=== PATIENT | female | born 1935 | race Caucasian/White ===

== ENCOUNTER 2018-09-08 15:51 | Outpatient (CLI) | payer MEDICARE ==
--- NOTE | 2018-09-08 18:52 | RAD ---
EXAM: CHEST TWO VIEWS: 09/08/18 HISTORY: COPD. Bilateral hyperinflation and chronic lung changes. Marked atherosclerotic ectatic changes of the aor ta. Heart size is borderline enlarged. Blunting to both costophrenic angles, possibly small pleural e ffusions. No confluent pneumonia, overt edema, or pleural effusion. Evidence for bone demineralizatio n. IMPRESSION: Minimal cardiomegaly with blunting of both costophrenic angles. Hyperinflation and chronic lung puente es. Marked atherosclerotic ectatic changes of the aorta. POS: [facility]
== END 2018-09-08 15:52 | disposition home or self-care (01) ==
LOC: RAD-FRANK 15:51
PROVIDERS: ATTEND Nurse Practitioner Family
DX: J44.9 Chronic obstructive pulmonary disease, unspecified (principal); I51.7 Cardiomegaly; I70.0 Atherosclerosis of aorta; J98.4 Other disorders of lung
CPT/HCPCS: 71046

== ENCOUNTER 2018-12-23 15:21 | Outpatient (CLI) | payer MEDICARE ==
--- NOTE | 2018-12-23 15:33 | RAD ---
EXAM: Chest 2 views: HISTORY: Bronchitis COMPARISON: 09/08/2018 FINDINGS: There is a normal-sized cardiomediastinal silhouette. There is no evidence of consolidation, mass, or pleural effusion. Degenerative changes are seen in the spine. IMPRESSION: No evidence of acute cardiopulmonary disease
== END 2018-12-23 15:22 | disposition home or self-care (01) ==
LOC: RAD-FRANK 15:21
PROVIDERS: ATTEND Nurse Practitioner Family
DX: J40 Bronchitis, not specified as acute or chronic (principal)
CPT/HCPCS: 71046

== ENCOUNTER 2019-05-11 14:44 | Outpatient (CLI) | payer MEDICARE ==
--- NOTE | 2019-05-11 15:42 | RAD ---
CHEST TWO VIEW 05/11/19 HISTORY: Cough. COMPARISON: Radiograph 12/23/18. FINDINGS: There is a chronic density in the right costophrenic sulcus. The aortic contour is tortuous. No conf luent air space consolidation, pneumothorax or effusion. No acute osseous abnormality. Increased AP d imension of the chest. IMPRESSION: Chronic findings. No acute intrathoracic abnormality. POS: [facility]
== END 2019-05-11 14:45 | disposition home or self-care (01) ==
LOC: RAD-FRANK 14:44
PROVIDERS: ATTEND Nurse Practitioner Family
DX: R05 Cough (principal)
CPT/HCPCS: 71046

== ENCOUNTER 2019-08-02 13:45 | Outpatient (CLI) | payer MEDICARE ==
--- NOTE | 2019-08-02 14:45 | BD ---
DEXA BONE DENSITY STUDY: Date: 08/02/19 HISTORY: Postmenopausal. FINDINGS: Lumbar Spine: BMD (g/cm2) L1 0.931 T-Score: -0.5 L2 0.928 T-Score: -0.9 L3 0.870 T-Score: -1.9 L4 0.992 T-Score: -0.6 Total 0.931 T-Score: -1.1 Left Femoral Neck: 0.555 T-Score: -2.6 Total Femur: 0.684 T-Score: -2.1 IMPRESSION: Osteopenia of the lumbar spine and osteoporosis of the left femoral neck. POS: [facility]
== END 2019-08-02 13:46 | disposition home or self-care (01) ==
LOC: BICMAMMO 13:45
PROVIDERS: ATTEND Nurse Practitioner Family
DX: Z13.820 Encounter for screening for osteoporosis (principal); M81.0 Age-related osteoporosis without current pathological fracture; M85.88 Other specified disorders of bone density and structure, other site
CPT/HCPCS: 77080

== ENCOUNTER 2020-10-20 11:18 | Inpatient (IN) | payer MEDICARE ==
[2020-10-20 12:14] LABS: #Lymphocytes 0.5 thou/uL (1.20-3.40); #Monocytes 0.4 thou/uL (0.11-0.59); #Neutrophils 11.1 thou/uL (1.40-6.50); %Basophils 0.1 % (0.0-1.0); %Eosinophils 0.1 % (0.0-10.0); %Lymphocytes 4.2 % (21.0-51.0); %Monocytes 3.6 % (0.0-10.0); Hemoglobin 16.6 g/dL (12.0-16.0); Mean Corpuscular HGB CONC 36.2 g/dL (32.0-36.0); Mean Platelet Volume 6.4 fL (7.4-10.4); Platelet Count 291 thou/uL (130-400); RBC Distribution Width 11.3 % (11.5-14.5); Red Blood Cell (RBC) Count 4.37 mill/uL (4.20-5.40); White Blood Cell (WBC) Count 12.1 thou/uL (4.8-10.8)
[2020-10-20 12:20] LABS: INR-International Normal Ratio 0.9; Prothrombin Time 12.5 sec (12.0-14.7)
[2020-10-20 12:33] LABS: Bacteria/HPF 3+ HPF (None Seen); Bilirubin Negative (Negative); Blood, Urine 2+ (Negative); Clarity Turbid (Clear); Glucose, Urine (Dipstick) Normal (Negative); Ketone, Urine Trace mg/dL (Negative); Leukocyte 250 Leu/uL (Negative); Nitrite Negative (Negative); Protein, Urine (Dipstick) 50 mg/dL (Neg-Trace); RBC/HPF 0-3 HPF (0-3); Specific Gravity, Urine 1.016 (1.002-1.036); Squamous Epithelial 0-3 HPF (0-3); Urobilinogen Normal mg/dL (Less than 2); WBC/HPF 21-50 HPF (0-3); pH, Urine 6.5 (5.0-9.0)
[2020-10-20 12:36] LABS: ALT (SGPT) 27 U/L (8-55); AST (SGOT) 43 U/L (5-34); Albumin 4.2 g/dL (3.4-4.8); Alkaline Phosphatase 102 U/L (40-110); Anion Gap 20 mmol/L (10-20); BUN (Urea Nitrogen) 14 mg/dL (9.8-20.1); Bilirubin, Total 1.9 mg/dL (0.2-1.2); CK (CPK) 907 U/L (29-168); Calc. Creatinine Clearance 0 mL/min (70-130); Calcium 9.5 mg/dL (7.8-10.44); Carbon Dioxide 26 mmol/L (23-31); Chloride 81 mmol/L (98-107); Globulin 2.8 g/dL (2.4-3.5); Glucose 123 mg/dL (83-110); Magnesium 1.3 mg/dL (1.6-2.6); Sodium 124 mmol/L (136-145)
[2020-10-20 12:38] LABS: MDiff Complete? YES; Macrocytosis SLIGHT = 6-15 cells (100X) (0-5/hpf); Platelet Morphology Comment Appears Adequate
[2020-10-20] MEDS ORDERED: Fentanyl 100 MCG/2 ML VIAL ONE ×2 (12:38→13:13)
[2020-10-20 12:47] LABS: Potassium 2.8 mmol/L (3.5-5.1)
[2020-10-20 13:12] LABS: CKMB 9.4 ng/mL (0-6.6)
[2020-10-20] MEDS ORDERED: Potassium Chloride 20 MEQ TAB ONE (13:55)
[2020-10-20] MEDS ORDERED: Potassium Chloride 20 MEQ/100 ML PREMIX BAG ONE (13:55)
[2020-10-20] MEDS ORDERED: Magnesium 2 GM/50 ML BAG (IN WATER) ONE (13:55)
[2020-10-20] MEDS ORDERED: cefTRIAXone\\ROCEPHIN 2 GM VIAL ONE (13:55)
[2020-10-20] MEDS ORDERED: Dextrose 5% in Water 1,000 ML IV PRN (14:16)
[2020-10-20] MEDS ORDERED: Ondansetron PF 4 MG/2 ML Vial IVP PRN (14:16)
[2020-10-20] MEDS ORDERED: hydrALAZINE 20 MG/ML VIAL SLOW IVP PRN (14:16)
[2020-10-20] MEDS ORDERED: Dextrose 50% Abboject 50 ML SYRINGE SLOW IVP PRN (14:16)
[2020-10-20] MEDS ORDERED: Ondansetron ODT 4 MG TAB PO PRN (14:16)
[2020-10-20] MEDS ORDERED: Cyclobenzaprine 10 MG TAB PO PRN (14:25)
[2020-10-20] MEDS ORDERED: traMADol HCl 50 MG TAB PO PRN (14:25)
[2020-10-20 14:50] LABS: Phosphorus 2.1 mg/dL (2.3-4.7)
[2020-10-20] MEDS ORDERED: Morphine 4 MG/ML VIAL ONE (15:21)
[2020-10-20] MEDS ORDERED: Sodium Phosphate 30 MMOL in Sodium Chloride 0.9% 250 ML 250 ML IVPB SCH (15:45)
[2020-10-20] MEDS: Morphine 2 MG/ML VIAL SLOW IVP PRN (18:05)
[2020-10-20] MEDS: Acetaminophen 500 MG TAB PO SCH ×2 (18:06→23:38)
[2020-10-20] MEDS: Sodium Chloride 0.9% 1,000 ML IV SCH ×2 (18:07→23:38)
[2020-10-20 18:50] LABS: Anion Gap 17 mmol/L (10-20); BUN (Urea Nitrogen) 12 mg/dL (9.8-20.1); Calc. Creatinine Clearance 69 mL/min (70-130); Calcium 8.8 mg/dL (7.8-10.44); Carbon Dioxide 24 mmol/L (23-31); Chloride 85 mmol/L (98-107); Glucose 117 mg/dL (83-110); Magnesium 2.6 mg/dL (1.6-2.6); Phosphorus 2.3 mg/dL (2.3-4.7); Potassium 3.6 mmol/L (3.5-5.1); Sodium 122 mmol/L (136-145)
[2020-10-20 18:59] LABS: Critical Call Chem Troponin I RESULT DECREASING
[2020-10-20 19:17] LABS: CKMB 6.5 ng/mL (0-6.6)
[2020-10-20] MEDS: Famotidine 20 MG TAB PO SCH (21:23)
[2020-10-21] MEDS: Morphine 2 MG/ML VIAL SLOW IVP PRN ×4 (01:07→19:41)
[2020-10-21 01:50] LABS: SARS-CoV-2 PCR by NAA Not Detected (NotDetected)
[2020-10-21 04:32] LABS: #Eosinphils 0.1 thou/uL (0.0-0.7); #Lymphocytes 1.1 thou/uL (1.20-3.40); #Monocytes 0.6 thou/uL (0.11-0.59); #Neutrophils 6.6 thou/uL (1.40-6.50); %Basophils 0.3 % (0.0-1.0); %Eosinophils 0.7 % (0.0-10.0); %Lymphocytes 13.5 % (21.0-51.0); %Monocytes 6.8 % (0.0-10.0); %Neutrophils 78.7 % (42.0-75.0); Hemoglobin 13.4 g/dL (12.0-16.0); Mean Corpuscular HGB CONC 35.7 g/dL (32.0-36.0); Mean Corpuscular Hemoglobin 37.9 pg (27.0-31.0); Mean Platelet Volume 6.6 fL (7.4-10.4); Platelet Count 214 thou/uL (130-400); RBC Distribution Width 11.3 % (11.5-14.5); Red Blood Cell (RBC) Count 3.55 mill/uL (4.20-5.40); White Blood Cell (WBC) Count 8.4 thou/uL (4.8-10.8)
[2020-10-21 05:17] LABS: BUN (Urea Nitrogen) 12 mg/dL (9.8-20.1); CK (CPK) 457 U/L (29-168); Calc. Creatinine Clearance 67 mL/min (70-130); Carbon Dioxide 18 mmol/L (23-31); Chloride 91 mmol/L (98-107); Glucose 96 mg/dL (83-110); Magnesium 2.3 mg/dL (1.6-2.6); Phosphorus 5.4 mg/dL (2.3-4.7); Potassium 4.7 mmol/L (3.5-5.1); Sodium 121 mmol/L (136-145)
[2020-10-21 05:21] LABS: Anion Gap 17 mmol/L (10-20)
[2020-10-21] MEDS: Acetaminophen 500 MG TAB PO SCH ×4 (05:25→23:18)
[2020-10-21] MEDS ORDERED: Sodium Chloride 0.9% 1,000 ML IV SCH (07:55)
[2020-10-21] MEDS ORDERED: Calcium Gluconate 4.6 MEQ in Sodium Chloride 0.9% 100 ML IVPB SCH (07:56)
[2020-10-21] MEDS: Famotidine 20 MG TAB PO SCH ×2 (08:43→19:42)
[2020-10-21] MEDS: Metoprolol Tartrate 100 MG TAB PO SCH (08:43)
[2020-10-21] MEDS ORDERED: Sodium Chloride 1 GM TAB PO SCH (09:00)
[2020-10-21] MEDS ORDERED: FLU VACC QS2020-21(65YR UP)/PF 240 MCG/0.7 ML SYRINGE IM ONE (09:00)
[2020-10-21] MEDS: Sodium Chloride 0.9% 1,000 ML IV SCH (10:08)
[2020-10-21] MEDS ORDERED: CEFAZOLIN 2 GM in Premix Bag 1 BAG IVPB SCH (12:30)
[2020-10-21] MEDS: cefTRIAXone\\ROCEPHIN 1 GM in Sodium Chloride 0.9% 100 ML IVPB SCH (13:04)
[2020-10-21] MEDS ORDERED: Cepastat Lozenges 1 LOZ PO PRN (13:25)
[2020-10-21] MEDS ORDERED: Tolvaptan 15 MG TAB PO SCH (18:00)
[2020-10-21] MEDS ORDERED: TOLVAPTAN 30 MG TAB PO SCH (18:00)
[2020-10-21] MEDS: Senokot S 8.6-50 MG TAB PO SCH (19:42)
[2020-10-22] MEDS: Morphine 2 MG/ML VIAL SLOW IVP PRN ×2 (03:19→16:56)
[2020-10-22 05:00] LABS: #Eosinphils 0.2 thou/uL (0.0-0.7); #Lymphocytes 1.2 thou/uL (1.20-3.40); #Monocytes 0.5 thou/uL (0.11-0.59); #Neutrophils 4.5 thou/uL (1.40-6.50); %Basophils 0.2 % (0.0-1.0); %Eosinophils 3.1 % (0.0-10.0); %Monocytes 7.2 % (0.0-10.0); %Neutrophils 70.5 % (42.0-75.0); Hemoglobin 12.6 g/dL (12.0-16.0); Mean Corpuscular HGB CONC 35.2 g/dL (32.0-36.0); Mean Corpuscular Hemoglobin 38.2 pg (27.0-31.0); Platelet Count 229 thou/uL (130-400); RBC Distribution Width 11.4 % (11.5-14.5); Red Blood Cell (RBC) Count 3.29 mill/uL (4.20-5.40); White Blood Cell (WBC) Count 6.3 thou/uL (4.8-10.8)
[2020-10-22 05:25] LABS: Anion Gap 12 mmol/L (10-20); BUN (Urea Nitrogen) 13 mg/dL (9.8-20.1); Calc. Creatinine Clearance 64 mL/min (70-130); Calcium 8.8 mg/dL (7.8-10.44); Carbon Dioxide 26 mmol/L (23-31); Chloride 95 mmol/L (98-107); Glucose 91 mg/dL (83-110); Potassium 4.2 mmol/L (3.5-5.1); Sodium 129 mmol/L (136-145)
[2020-10-22] MEDS: Acetaminophen 500 MG TAB PO SCH ×4 (05:47→23:34)
[2020-10-22] MEDS: Metoprolol Tartrate 100 MG TAB PO SCH (05:48)
[2020-10-22] MEDS ORDERED: Fentanyl 100 MCG/2 ML VIAL ONE ×3 (07:23→10:45)
[2020-10-22] MEDS ORDERED: Sodium Chloride 0.9% 1,000 ML IV SCH (08:00)
[2020-10-22] MEDS ORDERED: Dexamethasone 20 MG/5 ML VIAL ONE (08:28)
[2020-10-22] MEDS ORDERED: Rocuronium Bromide 10 MG/ML (10ML VIAL) ONE (08:28)
[2020-10-22] MEDS ORDERED: PROPOFOL 200 MG/20 ML VIAL ONE (08:28)
[2020-10-22] MEDS ORDERED: Ondansetron PF 4 MG/2 ML Vial ONE (08:28)
[2020-10-22] MEDS ORDERED: Lidocaine 1% PF 5 ML VIAL ONE (08:28)
[2020-10-22] MEDS ORDERED: Ondansetron HCl/PF 4 MG/2 ML Vial IVP PRN (09:17)
[2020-10-22] MEDS ORDERED: Promethazine HCl 25 MG/ML VIAL SLOW IVP PRN (09:17)
[2020-10-22] MEDS ORDERED: Promethazine HCl 25 MG/ML VIAL IM PRN (09:17)
[2020-10-22] MEDS ORDERED: SUGAMMADEX SODIUM 200 MG/2 ML VIAL ONE (09:21)
[2020-10-22] MEDS: Senokot S 8.6-50 MG TAB PO SCH ×2 (11:31→20:53)
[2020-10-22] MEDS: Famotidine 20 MG TAB PO SCH ×2 (11:32→20:53)
[2020-10-22] MEDS: cefTRIAXone\\ROCEPHIN 1 GM in Sodium Chloride 0.9% 100 ML IVPB SCH (14:40)
[2020-10-22] MEDS: CEFAZOLIN 2 GM in Premix Bag 1 BAG IVPB SCH ×2 (16:36→21:17)
[2020-10-23 04:42] LABS: #Lymphocytes 0.6 thou/uL (1.20-3.40); #Monocytes 0.6 thou/uL (0.11-0.59); #Neutrophils 6.8 thou/uL (1.40-6.50); %Lymphocytes 7.3 % (21.0-51.0); %Monocytes 7.1 % (0.0-10.0); %Neutrophils 85.6 % (42.0-75.0); Hemoglobin 11.2 g/dL (12.0-16.0); Mean Corpuscular HGB CONC 34.6 g/dL (32.0-36.0); Mean Corpuscular Hemoglobin 38.1 pg (27.0-31.0); Mean Platelet Volume 6.5 fL (7.4-10.4); Platelet Count 215 thou/uL (130-400); RBC Distribution Width 11.3 % (11.5-14.5); Red Blood Cell (RBC) Count 2.94 mill/uL (4.20-5.40)
[2020-10-23 05:01] LABS: Anion Gap 13 mmol/L (10-20); BUN (Urea Nitrogen) 15 mg/dL (9.8-20.1); Calc. Creatinine Clearance 65 mL/min (70-130); Calcium 8.2 mg/dL (7.8-10.44); Carbon Dioxide 25 mmol/L (23-31); Chloride 95 mmol/L (98-107); Glucose 136 mg/dL (83-110); Magnesium 1.7 mg/dL (1.6-2.6); Phosphorus 2.8 mg/dL (2.3-4.7); Potassium 4.7 mmol/L (3.5-5.1); Sodium 128 mmol/L (136-145)
[2020-10-23] MEDS: Acetaminophen 500 MG TAB PO SCH ×3 (05:49→18:22)
[2020-10-23] MEDS: CEFAZOLIN 2 GM in Premix Bag 1 BAG IVPB SCH (05:51)
[2020-10-23] MEDS: Senokot S 8.6-50 MG TAB PO SCH ×2 (08:55→20:43)
[2020-10-23] MEDS: Metoprolol Tartrate 100 MG TAB PO SCH (08:56)
[2020-10-23] MEDS: Famotidine 20 MG TAB PO SCH ×2 (08:56→20:44)
[2020-10-23] MEDS ORDERED: Magnesium Sulfate 3 GM in Sodium Chloride 0.9% 100 ML IVPB SCH (09:00)
[2020-10-23] MEDS: Aspirin 81 mg Enteric Coated Tablet PO SCH ×2 (10:50→20:44)
[2020-10-23] MEDS: traMADol HCl 50 MG TAB PO PRN (13:22)
[2020-10-24] MEDS: Acetaminophen 500 MG TAB PO SCH ×5 (00:08→23:55)
[2020-10-24] MEDS: Morphine 2 MG/ML VIAL SLOW IVP PRN (04:16)
[2020-10-24 06:04] LABS: Mean Corpuscular HGB CONC 34.5 g/dL (32.0-36.0); Mean Corpuscular Hemoglobin 37.8 pg (27.0-31.0); Mean Platelet Volume 6.7 fL (7.4-10.4); Platelet Count 204 thou/uL (130-400); RBC Distribution Width 11.4 % (11.5-14.5); Red Blood Cell (RBC) Count 2.91 mill/uL (4.20-5.40); White Blood Cell (WBC) Count 6.6 thou/uL (4.8-10.8)
[2020-10-24 06:21] LABS: Anion Gap 8 mmol/L (10-20); BUN (Urea Nitrogen) 15 mg/dL (9.8-20.1); Calc. Creatinine Clearance 0 mL/min (70-130); Calcium 8.3 mg/dL (7.8-10.44); Carbon Dioxide 30 mmol/L (23-31); Chloride 95 mmol/L (98-107); Glucose 81 mg/dL (83-110); Phosphorus 3.2 mg/dL (2.3-4.7); Potassium 4.4 mmol/L (3.5-5.1); Sodium 129 mmol/L (136-145)
[2020-10-24] MEDS: Famotidine 20 MG TAB PO SCH ×2 (08:43→19:43)
[2020-10-24] MEDS: Aspirin 81 mg Enteric Coated Tablet PO SCH ×2 (08:43→19:43)
[2020-10-24] MEDS: Metoprolol Tartrate 100 MG TAB PO SCH (08:44)
[2020-10-24] MEDS: Senokot S 8.6-50 MG TAB PO SCH ×2 (08:44→19:43)
[2020-10-24] MEDS: buPROPion 75 MG TAB PO SCH ×2 (08:44→08:50)
[2020-10-24] MEDS: Polyethylene Glycol 3350 17 GM Packet PO SCH (08:44)
[2020-10-24] MEDS: Vit A,C & E/Lutein/Minerals Tablet PO SCH (10:54)
[2020-10-24] MEDS: traMADol HCl 50 MG TAB PO SCH ×3 (11:33→23:55)
[2020-10-24] MEDS ORDERED: Mometasone 200 MCG/Formoterol 5 MCG 120 PUFF INHALER INH SCH ×3 (12:30→21:00)
[2020-10-24] MEDS ORDERED: Furosemide 20 MG/2 ML VIAL SLOW IVP SCH (12:45)
[2020-10-24] MEDS: traMADol HCl 50 MG TAB PO PRN (19:50)
[2020-10-25] MEDS: traMADol HCl 50 MG TAB PO SCH ×4 (05:44→23:55)
[2020-10-25] MEDS: Acetaminophen 500 MG TAB PO SCH ×4 (05:44→23:56)
[2020-10-25 06:11] LABS: Anion Gap 12 mmol/L (10-20); BUN (Urea Nitrogen) 16 mg/dL (9.8-20.1); Calc. Creatinine Clearance 0 mL/min (70-130); Calcium 8.4 mg/dL (7.8-10.44); Carbon Dioxide 28 mmol/L (23-31); Chloride 93 mmol/L (98-107); Glucose 81 mg/dL (83-110); Magnesium 1.6 mg/dL (1.6-2.6); Phosphorus 3.1 mg/dL (2.3-4.7); Potassium 4.2 mmol/L (3.5-5.1); Sodium 129 mmol/L (136-145)
[2020-10-25 06:36] LABS: MDiff Complete? YES
[2020-10-25] MEDS ORDERED: Magnesium Sulfate 2 GM in Sodium Chloride 0.9% 100 ML IV SCH (07:15)
[2020-10-25] MEDS ORDERED: Magnesium 2 GM/50 ML 2 GM in Premix Bag 1 BAG IVPB SCH (07:15)
[2020-10-25] MEDS: Mometasone 200 MCG/Formoterol 5 MCG 120 PUFF INHALER INH SCH ×2 (07:28→18:44)
[2020-10-25 08:20] LABS: Mean Corpuscular HGB CONC 34.5 g/dL (32.0-36.0); Mean Corpuscular Hemoglobin 37.9 pg (27.0-31.0); Mean Platelet Volume 6.3 fL (7.4-10.4); Platelet Count 212 thou/uL (130-400); RBC Distribution Width 11.2 % (11.5-14.5); White Blood Cell (WBC) Count 4.9 thou/uL (4.8-10.8)
[2020-10-25 08:21] LABS: #Eosinphils 0.3 thou/uL (0.0-0.7); #Lymphocytes 1.3 thou/uL (1.20-3.40); #Monocytes 0.5 thou/uL (0.11-0.59); #Neutrophils 2.9 thou/uL (1.40-6.50); %Basophils 0.4 % (0.0-1.0); %Eosinophils 5.1 % (0.0-10.0); %Lymphocytes 25.8 % (21.0-51.0); %Monocytes 10.6 % (0.0-10.0); %Neutrophils 58.1 % (42.0-75.0)
[2020-10-25] MEDS ORDERED: Pantoprazole 40 MG VIAL IVP SCH (08:48)
[2020-10-25] MEDS: Aspirin 81 mg Enteric Coated Tablet PO SCH ×2 (09:09→19:48)
[2020-10-25 09:10] LABS: MDiff Complete? YES; Macrocytosis SLIGHT = 6-15 cells (100X) (0-5/hpf); Platelet Morphology Comment Appears Adequate; Polychromasia SLIGHT = 2-3 cells (100X) (0-2/hpf)
[2020-10-25] MEDS: Metoprolol Tartrate 100 MG TAB PO SCH (09:10)
[2020-10-25] MEDS: Vit A,C & E/Lutein/Minerals Tablet PO SCH (09:10)
[2020-10-25] MEDS: Senokot S 8.6-50 MG TAB PO SCH ×2 (09:11→19:48)
[2020-10-25] MEDS: Polyethylene Glycol 3350 17 GM Packet PO SCH (09:11)
[2020-10-25] MEDS: buPROPion 75 MG TAB PO SCH (09:16)
[2020-10-25 11:33] LABS: Troponin I 0.014 ng/mL (< 0.028)
[2020-10-26] MEDS: traMADol HCl 50 MG TAB PO SCH ×4 (05:51→23:59)
[2020-10-26] MEDS: Acetaminophen 500 MG TAB PO SCH ×4 (05:51→23:59)
[2020-10-26] MEDS: Mometasone 200 MCG/Formoterol 5 MCG 120 PUFF INHALER INH SCH ×2 (07:30→18:19)
[2020-10-26] MEDS: Aspirin 81 mg Enteric Coated Tablet PO SCH ×2 (08:52→20:44)
[2020-10-26] MEDS: buPROPion 75 MG TAB PO SCH (08:52)
[2020-10-26] MEDS: Metoprolol Tartrate 100 MG TAB PO SCH (08:52)
[2020-10-26] MEDS: Senokot S 8.6-50 MG TAB PO SCH ×3 (08:53→20:45)
[2020-10-26] MEDS: Ibuprofen 200 MG TAB PO PRN (08:53)
[2020-10-26] MEDS: Vit A,C & E/Lutein/Minerals Tablet PO SCH (08:53)
[2020-10-26] MEDS: Polyethylene Glycol 3350 17 GM Packet PO SCH (08:56)
[2020-10-27] MEDS: traMADol HCl 50 MG TAB PO SCH ×2 (05:51→11:45)
[2020-10-27] MEDS: Acetaminophen 500 MG TAB PO SCH ×2 (05:51→11:44)
[2020-10-27] MEDS: Mometasone 200 MCG/Formoterol 5 MCG 120 PUFF INHALER INH SCH (07:00)
[2020-10-27] MEDS: Aspirin 81 mg Enteric Coated Tablet PO SCH (09:00)
[2020-10-27] MEDS: Vit A,C & E/Lutein/Minerals Tablet PO SCH (09:00)
[2020-10-27] MEDS: buPROPion 75 MG TAB PO SCH (09:01)
[2020-10-27] MEDS: Polyethylene Glycol 3350 17 GM Packet PO SCH (09:01)
[2020-10-27] MEDS: Ibuprofen 200 MG TAB PO PRN (09:01)
[2020-10-27] MEDS: Metoprolol Tartrate 100 MG TAB PO SCH (09:01)
[2020-10-27] MEDS: Senokot S 8.6-50 MG TAB PO SCH (09:01)
[2020-10-27 12:23] VITALS: BP 154/82; TEMP 98.2
== END 2020-10-27 15:01 | DRG 521 ==
LOC: ERS 11:18 → 2NO 14:16 → SURG A 10-23 21:20
PROVIDERS: ADMIT Surgery; ATTEND Surgery
PROC: 0SRS01A Replacement of Left Hip Joint, Femoral Surface with Metal Synthetic Substitute, Uncemented, Open Approach (ICD-10-PCS; principal; 2020-10-22)
DX: S72.009A Fracture of unspecified part of neck of unspecified femur, initial encounter for closed fracture (principal); I21.4 Non-ST elevation (NSTEMI) myocardial infarction; N39.0 Urinary tract infection, site not specified; E22.2 Syndrome of inappropriate secretion of antidiuretic hormone; I50.30 Unspecified diastolic (congestive) heart failure; E87.6 Hypokalemia; E86.0 Dehydration; R77.8 Other specified abnormalities of plasma proteins; J44.9 Chronic obstructive pulmonary disease, unspecified; I10 Essential (primary) hypertension; E83.42 Hypomagnesemia; F17.210 Nicotine dependence, cigarettes, uncomplicated; E83.39 Other disorders of phosphorus metabolism; B96.20 Unspecified Escherichia coli [E. coli] as the cause of diseases classified elsewhere; W01.0XXA Fall on same level from slipping, tripping and stumbling without subsequent striking against object, initial encounter; I45.81 Long QT syndrome; I51.89 Other ill-defined heart diseases; Y92.000 Kitchen of unspecified non-institutional (private) residence as the place of occurrence of the external cause; Z90.49 Acquired absence of other specified parts of digestive tract; Z90.710 Acquired absence of both cervix and uterus; Z79.899 Other long term (current) drug therapy
CPT/HCPCS: 36415; 51702; 71045; 72170; 80048; 80053; 81003; 81015; 82550; 82553; 83735; 83880; 83935; 84100; 84300; 84443; 84484; 85025; 85027; 85610; 87077; 87086; 87186; 87635; 93005; 93010; 93306; 94640; 96365; 96366; 96367; 96375; 96376; C9113; J0690; J0696; J1100; J1940; J2001; J2270; J2405; J2704; J3010; J3475; J3480; J3490; J7030; J7050; J7620; U0003; U0005

== ENCOUNTER 2024-03-03 14:22 | Outpatient (CLI) | payer MEDICARE | END 2024-03-03 14:23 | disposition home or self-care (01) | LOC: ULT 14:22 | PROVIDERS: ATTEND Nurse Practitioner Family | DX: R60.0 Localized edema (principal); I82.442 Acute embolism and thrombosis of left tibial vein ==

== ENCOUNTER 2024-03-03 15:50 | Emergency (ER) | payer MEDICARE ==
[2024-03-03 18:26] LABS: #Basophils 0.04 10x3/uL (0.0-0.2); %Basophils 0.7 % (0.0-1.0); %Eosinophils 2.9 % (0.0-10.0); %Lymphocytes 21.5 % (21.0-51.0); %Monocytes 8.5 % (0.0-10.0); Hematocrit 43.9 % (36.0-47.0); Hemoglobin 15.5 g/dL (12.0-16.0); Mean Corpuscular HGB CONC 35.3 g/dL (32.0-36.0); Mean Corpuscular Hemoglobin 34.3 pg (27.0-31.0); Mean Corpuscular Volume 97.1 fL (78.0-98.0); Mean Platelet Volume 10.4 fL (7.4-10.4); Platelet Count 213 10x3/uL (130-400); RBC Distribution Width 12.2 % (11.5-14.5); Red Blood Cell (RBC) Count 4.52 mill/uL (4.20-5.40)
[2024-03-03 18:39] LABS: ALT (SGPT) 18 U/L (8-55); AST (SGOT) 21 U/L (5-34); Alkaline Phosphatase 106 U/L (40-110); Anion Gap 14 mmol/L (10-20); BUN (Urea Nitrogen) 40 mg/dL (9.8-20.1); Bilirubin, Total 0.5 mg/dL (0.2-1.2); Calc. Creatinine Clearance 0 mL/min (70-130); Calcium 9.9 mg/dL (7.8-10.44); Carbon Dioxide 30 mmol/L (23-31); Chloride 95 mmol/L (98-107); Estimated GFR 58; Globulin 3.1 g/dL (2.4-3.5); Glucose 110 mg/dL (83-110); Protein, Total 7.1 g/dL (5.8-8.1); Sodium 136 mmol/L (136-145)
[2024-03-03 18:40] LABS: INR-International Normal Ratio 0.9; Prothrombin Time 12.6 sec (12.0-14.7)
[2024-03-03 18:41] LABS: PTT 29.9 sec (22.9-36.1)
[2024-03-03] MEDS ORDERED: Potassium Chloride 20 MEQ TAB ONE (20:08)
[2024-03-03] MEDS ORDERED: Apixaban 5 MG TAB ONE (20:40)
== END 2024-03-03 20:46 | disposition home or self-care (01) ==
LOC: ERS 15:50
DX: I82.402 Acute embolism and thrombosis of unspecified deep veins of left lower extremity (principal); I10 Essential (primary) hypertension; F17.210 Nicotine dependence, cigarettes, uncomplicated; Z55.6 Problems related to health literacy; I82.442 Acute embolism and thrombosis of left tibial vein; R60.0 Localized edema
CPT/HCPCS: 36415; 80053; 85025; 85610; 85730